=== PATIENT | female | born 1950 | race African-American/Black ===

== ENCOUNTER 2016-09-15 18:53 | Inpatient (IN) | payer OTHER ==
[~2016-09-15] VITALS: Ht 165.1 cm; Wt 103.1 kg
[2016-09-15] VITALS (156 sets, daily range): BP systolic 142; BP diastolic 92; PULSE 71; TEMP 97.3; O2SAT 87–99
[~2016-09-15 18:53] MED LIST: ASPIRIN E.C. 8181 MG PO; COREG 6.256.25 MG/TA PO; FORTAMET1000 MG PO; HCTZ 25MG25 MG PO; LANTUS100 U/ML; LISINOPRIL30 MG PO; PRILOSEC 20MG20 MG PO; ZOCOR40 MG PO
[2016-09-15] MEDS ORDERED: DETROL LA4 PO (21:48)
[2016-09-15] MEDS ORDERED: PRILOSEC 20MG20 MG PO (21:49)
[2016-09-15] MEDS ORDERED: NORVASC 10MG10 MG PO (21:50)
[2016-09-15] MEDS ORDERED: ALDACTONE 25MG25 M1 PO (21:50)
[2016-09-15] MEDS ORDERED: GLUCOTROL10 MG PO (21:51)
[2016-09-15] MEDS ORDERED: ONE DAILY1 TA1 PO (21:53)
[2016-09-15 23:11] LABS: ADJUSTED CALCIUM 8.6 mg/dL (8.4-10.2); BILIRUBIN,TOTAL 0.4 mg/dL (0.0-1.0); CALCIUM 8.6 mg/dL (8.4-10.2); CREATININE, serum 0.94 mg/dL (0.52-1.25); MAGNESIUM 2.1 mg/dL (1.6-2.3); PHOSPHOROUS 3.3 mg/dL (2.5-4.5); POTASSIUM 3.9 mmol/L (3.4-5.0); TOTAL PROTEIN 7.8 gm/dL (6.4-8.2)
[2016-09-16] VITALS (413 sets, daily range): BP systolic 113–159; BP diastolic 66–105; PULSE 64–86; TEMP 97–98.3; O2SAT 86–99
[2016-09-16 07:30] LABS: BASO % 0.6 % (0.0-2.0); EOS # 0.2 (0.0-0.7); EOS % 4.2 % (0-4.0); GRAN # 2.3 (1.4-6.5); GRAN % 41.6 % (42.2-75.2); HEMATOCRIT 39.5 % (37.0-47.0); HEMOGLOBIN 12.2 g/dl (12.5-16.0); LYMPH # 2.3 (1.2-3.4); LYMPH % 42.6 % (20.0-51.0); MEAN CELL VOLUME 75 fl (80.0-100.0); MEAN CORPUSCULAR HEMOGLOBIN 23 pg (27.0-31.0); MEAN CORPUSCULAR HGB CONC 31 g/dl (33.0-37.0); MEAN PLATELET VOLUME 10.6 fl (7.4-10.4); MONO # 0.6 (0.1-0.6); MONO % 10.8 % (1.7-9.3); PLATELET COUNT 224 K/mm3 (130-400); RED BLOOD COUNT 5.27 M/mm3 (4.10-5.30); REDCELL DISTRIBUTION WIDTH-CV 14.5 % (11.5-14.5); WHITE BLOOD COUNT 5.5 K/mm3 (4.8-10.8)
[2016-09-17 02:15] VITALS: BP 129/83; PULSE 79; TEMP 97.4
[2016-09-17 05:49] VITALS: BP 114/68; PULSE 77; TEMP 98.2
[2016-09-17] MEDS ORDERED: LANTUS SOLOS100 U/ML SQ (08:32)
[2016-09-17] MEDS ORDERED: ZESTRIL2.5 MG PO (08:32)
== END 2016-09-17 10:30 | disposition home health service (06) | DRG 638 ==
LOC: IMCU 18:53 → ICU 20:51 → SURG 09-16 12:00
PROVIDERS: Nurse Practitioner Family
DX: E11.65 Type 2 diabetes mellitus with hyperglycemia (principal); N17.9 Acute kidney failure, unspecified; I10 Essential (primary) hypertension; E78.5 Hyperlipidemia, unspecified; K21.9 Gastro-esophageal reflux disease without esophagitis; R35.0 Frequency of micturition; Z79.4 Long term (current) use of insulin
CPT/HCPCS: 99222-AI; 99239; J1644; J1815; J7030

== ENCOUNTER → 2021-04-10 | Outpatient (CLI) | payer MEDICARE, OTHER ==
[~2021-04-10] MED LIST changes: +ALDACTONE 25MG25 M1 PO; +DETROL LA4 PO; +GLUCOTROL10 MG PO; +LANTUS SOLOS100 U/ML SQ; +NORVASC 10MG10 MG PO; +ONE DAILY1 TA1 PO; +ZESTRIL2.5 MG PO
== END ==
LOC: COL.RAD 11:53
DX: D64.9 Anemia, unspecified (principal)